=== PATIENT | female | born 1975 ===

== ENCOUNTER 2017-04-01 17:01 | Emergency (ER) | payer MEDICAID, OTHER ==
[2017-04-01 17:45] VITALS: BMI 34.0
[2017-04-01 17:49] VITALS: PULSE 73; O2SAT 100
[2017-04-01] MEDS ORDERED: Albuterol-Ipratrop 3 mg / 0.5 (3 ml) UD INH STA (18:19)
--- NOTE | 2017-04-01 18:24 | C.PDOC ---
History Of Present Illness 42 year old female with Hx of asthma presents to the ED c/o non productive cough , chest discomfort for 1-2 weeks. Patient states she lives in [place] and does not have access to medicine. Patient denies fever, chills, vomit, nausea, abdominal pain, diarrhea, numbness or weakness. Chief Complaint (Nursing): Shortness Of Breath History Per: Patient History/Exam Limitations: no limitations Onset/Duration Of Symptoms: Days Current Symptoms Are (Timing): Still Present Quality: Tightness Exacerbating Factor(s): Coughing Current Respiratory Medications: None Severity: None Associated Symptoms: Chest Pain (With cough). denies: Fever, Dizziness, Tingling In Hands Or Face Recent travel outside of the [place]: No Additional History Per: Patient Past Medical History Reviewed: Historical Data, Nursing Documentation, Vital Signs Vital Signs: Last Vital Signs Temp 97.8 F 04/01/17 17:45 Pulse 73 04/01/17 17:45 Resp 19 04/01/17 17:50 BP 132/84 04/01/17 17:45 Pulse Ox 100 04/01/17 17:45 - Medical History PMH: Asthma Surgical History: No Surg Hx Family History: States: Unknown Family Hx - Social History Hx Alcohol Use: No Hx Substance Use: No - Immunization History Hx Tetanus Toxoid Vaccination: Yes Hx Influenza Vaccination: No Hx Pneumococcal Vaccination: No Review Of Systems Constitutional: Negative for: Fever, Chills Cardiovascular: Positive for: Chest Pain (with cough). Negative for: Palpitations Respiratory: Positive for: Cough (non productive ). Negative for: Sputum Gastrointestinal: Negative for: Nausea, Vomiting, Abdominal Pain Musculoskeletal: Negative for: Back Pain Skin: Negative for: Rash Neurological: Negative for: Weakness, Numbness Physical Exam - Physical Exam Appears: Non-toxic, No Acute Distress Skin: Normal Color, Warm, Dry Head: Atraumatic, Normacephalic Eye(s): bilateral: Normal Inspection Ear(s): Bilateral: Normal Nose: No Discharge, No Deformity Oral Mucosa: Moist, No Drooling Neck: Normal ROM, Supple Chest: Symmetrical Cardiovascular: Rhythm Regular, No Murmur Respiratory: Normal Breath Sounds, No Rales, No Rhonchi, No Wheezing Gastrointestinal/Abdominal: Soft, No Tenderness, No Guarding, No Rebound Extremity: Normal ROM, No Pedal Edema, No Calf Tenderness, No Swelling Neurological/Psych: Oriented x3, Normal Speech, Normal Cognition ED Course And Treatment O2 Sat by Pulse Oximetry: 100 (On RA) Pulse Ox Interpretation: Normal Progress Note: Plan: -Albuterol 3 ml INH given. -Prednisone 20 mg PO given Disposition - Disposition - Scribe Statement The provider has reviewed the documentation as recorded by the Scribe Nicholas Hooker All medical record entries made by the Scribe were at my direction and personally dictated by me. I have reviewed the chart and agree that the record accurately reflects my personal performance of the history, physical exam, medical decision making, and the department course for this patient. I have also personally directed, reviewed, and agree with the discharge instructions and disposition.
--- NOTE | 2017-04-01 18:30 | C.PDOC ---
Chief Complaint (Nursing): Shortness Of Breath Past Medical History Vital Signs: Last Vital Signs Temp 97.8 F 04/01/17 17:45 Pulse 73 04/01/17 17:45 Resp 19 04/01/17 17:50 BP 132/84 04/01/17 17:45 Pulse Ox 100 04/01/17 17:45 - Medical History PMH: Asthma - Social History Hx Alcohol Use: No Hx Substance Use: No - Immunization History Hx Tetanus Toxoid Vaccination: Yes Hx Influenza Vaccination: No Hx Pneumococcal Vaccination: No ED Course And Treatment O2 Sat by Pulse Oximetry: 100 Disposition - Disposition Disposition: HOME/ ROUTINE Disposition Time: 18:45 Condition: STABLE - Clinical Impression Clinical Impression: Bronchitis, Asthma
[2017-04-01] MEDS ORDERED: Albuterol-Ipratrop 3 mg / 0.5 (3 ml) UD ONE (18:41)
[2017-04-01 19:11] VITALS: BP 151/79; RESP 18; TEMP 98
--- NOTE | 2017-04-03 23:23 | CARD ---
APPROVED REPORT EKG Measurement Heart [id number] IL [id number] <Conclusion> Normal sinus rhythm Nonspecific T wave abnormality Abnormal ECG
== END 2017-04-01 19:12 | disposition home or self-care (01) ==
LOC: C.ER 17:01
DX: J45.909 Unspecified asthma, uncomplicated (principal)

== ENCOUNTER 2017-04-07 15:16 | Emergency (ER) | payer MEDICAID ==
[2017-04-07 15:16] VITALS: BMI 34.0
--- NOTE | 2017-04-07 15:50 | C.PDOC ---
History Of Present Illness CO PERSIST ASTHMA SX X 2 WEEKS. SEEN 04/01 FOR SAME, ON PREDNISONE 20 MG DAILY X 7 DAYS, LAST DOSE THIS MORNING. PS NO IMPROVEMENT. PERSIST COUGH, +PLEURITIC PAIN. NO FEVER. RAN OUT OF PUMP EXAM NARD LUNGS CTA B/L NO W/R/R NO RETRACTION REMAINDER NEG MDM PT CO CURRENT ASTHMA SX. PREDNISONE, NEB, TORADOL REEVAL Time Seen by Provider: 04/07/17 15:36 Chief Complaint (Nursing): Shortness Of Breath History Per: Patient History/Exam Limitations: no limitations Onset/Duration Of Symptoms: Days (2 weeks) Past Medical History Reviewed: Historical Data, Nursing Documentation, Vital Signs Vital Signs: Last Vital Signs Temp 97.9 F 04/07/17 15:22 Pulse 70 04/07/17 15:22 Resp 18 04/07/17 15:22 BP 122/80 04/07/17 15:22 Pulse Ox 98 04/07/17 16:26 - Medical History PMH: Asthma Family History: States: No Known Family Hx, Unknown Family Hx - Social History Hx Alcohol Use: No Hx Substance Use: No - Immunization History Hx Tetanus Toxoid Vaccination: Yes Hx Influenza Vaccination: No Hx Pneumococcal Vaccination: No Review Of Systems Except As Marked, All Systems Reviewed And Found Negative. Constitutional: Negative for: Fever Cardiovascular: Negative for: Chest Pain Respiratory: Positive for: Other (Persistent asthma) Gastrointestinal: Negative for: Nausea, Vomiting Physical Exam - Physical Exam Appears: Non-toxic, No Acute Distress Skin: Warm, Dry, No Rash Head: Atraumatic, Normacephalic Oral Mucosa: Moist Cardiovascular: Rhythm Regular, No Murmur Respiratory: Normal Breath Sounds, No Rales, No Rhonchi, No Stridor, No Wheezing , Other (No retractions) ED Course And Treatment O2 Sat by Pulse Oximetry: 98 (RA) Pulse Ox Interpretation: Normal - Radiology CXR: Viewed By Me, Read By Radiologist CXR Interpretation: Yes: Other (IMPRESSION: No focal consolidation, significant pleural effusion, or definite pneumothorax identified.) Progress - Data Reviewed Data Reviewed: Old records Medical Decision Making Medical Decision Making: PLAN: * CXR * Albuterol IH * Tessalon Perles PO * Prednisone PO NOTE: PT CO CURRENT ASTHMA SX. PREDNISONE, NEB, TORADOL REEVAL Disposition Counseled Patient/Family Regarding: Studies Performed, Diagnosis, Need For Followup, Rx Given - Disposition Referrals: [facility] [Outside] [facility] [Outside] Disposition: HOME/ ROUTINE Disposition Time: 17:13 Condition: IMPROVED Prescriptions: Albuterol HFA [Ventolin HFA 90 mcg/actuation (8 g)] 1 puff IH Q4 #1 inhaler Benzonatate [Tessalon Perles] 200 mg PO TID PRN #15 sgl PRN Reason: Cough Methylprednisolone [Medrol] 4 mg PO DAILY #1 packet predniSONE [Prednisone] 60 mg PO DAILY #9 tab Instructions: Asthma (ED) Forms: Check (Mauritanian) - Clinical Impression Clinical Impression: Asthma - Scribe Statement The provider has reviewed the documentation as recorded by the Dru Owen Provider Attestation: All medical record entries made by the Suzeibsp were at my direction and personally dictated by me. I have reviewed the chart and agree that the record accurately reflects my personal performance of the history, physical exam, medical decision making, and the department course for this patient. I have also personally directed, reviewed, and agree with the discharge instructions and disposition.
[2017-04-07] MEDS ORDERED: Albuterol-Ipratrop 3 mg / 0.5 (3 ml) UD IH STA (15:51)
[2017-04-07] MEDS ORDERED: Albuterol-Ipratrop 3 mg / 0.5 (3 ml) UD ONE (16:00)
--- NOTE | 2017-04-07 16:23 | RAD ---
HISTORY: COUGH COMPARISON: None available. TECHNIQUE: Chest PA and lateral FINDINGS: LUNGS: No focal consolidation. Please note that chest x-ray has limited sensitivity for the detection of pulmonary masses. PLEURA: No significant pleural effusion identified. No definite pneumothorax . CARDIOVASCULAR: The cardiomediastinal silhouette appears within normal limits of size. OSSEOUS STRUCTURES: No acute osseous abnormality identified. VISUALIZED UPPER ABDOMEN: Unremarkable. OTHER FINDINGS: None. IMPRESSION: No focal consolidation, significant pleural effusion, or definite pneumothorax identified.
[2017-04-07 17:27] VITALS: BP 124/72; PULSE 77; RESP 19; TEMP 98; O2SAT 99
== END 2017-04-07 17:26 | disposition home or self-care (01) ==
LOC: C.ER 15:16
DX: J45.909 Unspecified asthma, uncomplicated (principal)
CPT/HCPCS: 71020; 94150; 94640; 96372; 99283; J1885

== ENCOUNTER 2017-12-13 16:04 | Emergency (ER) | payer SELFPAY ==
[2017-12-13 16:04] VITALS: BMI 34.0
[2017-12-13 16:11] VITALS: BP 135/74; PULSE 91; RESP 18; TEMP 98.6; O2SAT 96
--- NOTE | 2017-12-13 16:46 | C.PDOC ---
History Of Present Illness <Evelio Campos - Last Filed: 12/13/17 16:51> <Jose E Devine DO - Last Filed: 12/13/17 18:33> CC: Foot Blisters Patient is a 42 year old female with no past medical history who presents to the ED with complaint of foot blisters that started yesterday after spending a day at the pool. Patient denies walking barefoot or unsupported footware. Patient denies any recent trauma or hot water injury. Patient denies fever, chills, or difficulty walking. (Evelio Campos) History Per: Patient History/Exam Limitations: no limitations Onset/Duration Of Symptoms: Hrs Current Symptoms Are (Timing): Still Present Severity: Moderate Pain Scale Rating Of: 6 Location: Bilateral big toes and fifth digits blisters Quality: Burning <Evelio Campos - Last Filed: 12/13/17 16:51> <Jose E Devine DO - Last Filed: 12/13/17 18:33> Time Seen by Provider: 12/13/17 16:11 Chief Complaint (Nursing): Abnormal Skin Integrity Past Medical History - Medical History PMH: No Chronic Diseases, Asthma Family History: States: Unknown Family Hx - Social History Hx Alcohol Use: No Hx Substance Use: No - Immunization History Hx Tetanus Toxoid Vaccination: Yes Hx Influenza Vaccination: No Hx Pneumococcal Vaccination: No <Evelio Campos - Last Filed: 12/13/17 16:51> Vital Signs: Last Vital Signs Temp 98.6 F 12/13/17 16:08 Pulse 91 H 12/13/17 16:08 Resp 18 12/13/17 16:08 BP 135/74 12/13/17 16:08 Pulse Ox 96 12/13/17 16:58 Review Of Systems Constitutional: Negative for: Fever, Chills, Weakness, Malaise Cardiovascular: Negative for: Chest Pain, Palpitations Respiratory: Negative for: Shortness of Breath Gastrointestinal: Negative for: Nausea, Vomiting Musculoskeletal: Positive for: Foot Pain Neurological: Negative for: Weakness <Evelio Campos - Last Filed: 12/13/17 16:51> Physical Exam - Physical Exam Appears: Well Skin: Normal Color Head: Atraumatic, Normacephalic Eye(s): bilateral: EOMI Extremity: Normal ROM, Tenderness, Other (Bilateral foot tenderness due to blisters ) Neurological/Psych: Oriented x3, Normal Speech <Evelio Campos - Last Filed: 12/13/17 16:51> ED Course And Treatment O2 Sat by Pulse Oximetry: 96 <Evelio Campos - Last Filed: 12/13/17 16:51> Medical Decision Making <Evelio Campos - Last Filed: 12/13/17 16:51> <Jose E Devine DO - Last Filed: 12/13/17 18:33> Medical Decision Making: Blisters drainage X4 (Evelio Campos) Disposition Discussed With : Jose E Devine DO - Disposition Disposition Time: 16:48 <Evelio Campos - Last Filed: 12/13/17 16:51> <Jose E Devine DO - Last Filed: 12/13/17 18:33> - Disposition Referrals: [facility] [Outside] [facility] [Outside] Disposition: HOME/ ROUTINE Condition: GOOD Additional Instructions: Please discharge patient home Please use anti-fungal topical cream twice daily Please keep warm compresses on blister every 4 hours. Please wash feet with antiseptic soap and warm water Please avoid walking barefoot Please wear shoes with good support Pleas avoid slippers (plastic or glass) for now Please always keep feet dry Please follow up with the [facility], Prescriptions: Miconazole Nitrate [Anti-Fungal Cream] 113 gm TP BID #1 cream..g. Forms: [facility] (Danish), General Discharge Instructions - Clinical Impression Clinical Impression: Blister of foot without infection - PA / HVAC/R SERVICE TECHNICIAN / Resident Statement / has reviewed & agrees with the documentation as recorded. / has examined the patient and agrees with the treatment plan. <Jose E Devine DO - Last Filed: 12/13/17 18:33>
== END 2017-12-13 16:52 | disposition home or self-care (01) ==
LOC: C.ER 16:04
DX: S90.822A Blister (nonthermal), left foot, initial encounter (principal); S90.821A Blister (nonthermal), right foot, initial encounter; X58.XXXA Exposure to other specified factors, initial encounter; Y92.34 Swimming pool (public) as the place of occurrence of the external cause

== ENCOUNTER 2018-03-03 13:17 | Emergency (ER) | payer MEDICAID, OTHER ==
[2018-03-03 13:17] VITALS: BMI 34.0
[2018-03-03 13:29] VITALS: BP 134/98; PULSE 73; RESP 22; TEMP 98; O2SAT 98
[2018-03-03] MEDS ORDERED: Naproxen 550 mg Tab PO STA (13:52)
[2018-03-03] MEDS ORDERED: Amoxicillin-Clav 875-125 mg Tab PO STA (13:53)
[2018-03-03] MEDS ORDERED: Amoxicillin-Clav 875-125 mg Tab PO ONE (14:01)
[2018-03-03] MEDS ORDERED: Naproxen 550 mg Tab PO ONE (14:02)
--- NOTE | 2018-03-03 14:29 | C.PDOC ---
History Of Present Illness 43 y/o female pt with hx of trigeminal neuralgia presents to the ER for ear pain. Pt was seen in [facility] on 02/28 where they gave her tramadol and ear drops which provide no relief. Pt uses lidocaine patches on her face and neck due to her trigeminal neuralgia. Pt denies fever, chills, nausea, vomiting, headache and dizziness. Time Seen by Provider: 03/03/18 13:32 Chief Complaint (Nursing): ENT Problem History Per: Patient History/Exam Limitations: None Onset/Duration Of Symptoms: Days Current Symptoms Are (Timing): Still Present Severity: Mild Past Medical History Reviewed: Historical Data, Nursing Documentation, Vital Signs Vital Signs: Last Vital Signs Temp 98.0 F 03/03/18 13:25 Pulse 73 03/03/18 13:25 Resp 22 03/03/18 13:25 BP 134/98 H 03/03/18 13:25 Pulse Ox 98 03/03/18 13:25 - Medical History PMH: Asthma Other PMH: neuralgia - [facility] (02/07/18) INTRODUCTION OF SERUM/TOX/VACCINE INTO MUSCLE, PERC APPROACH (02/07/18) Family History: States: Unknown Family Hx - Social History Hx Alcohol Use: No Hx Substance Use: No - Immunization History Hx Tetanus Toxoid Vaccination: Yes Hx Influenza Vaccination: No Hx Pneumococcal Vaccination: No Review Of Systems Except As Marked, All Systems Reviewed And Found Negative. Constitutional: Negative for: Fever, Chills ENT: Positive for: Ear Pain Gastrointestinal: Negative for: Nausea, Vomiting Neurological: Negative for: Headache Physical Exam - Physical Exam Appears: Non-toxic, No Acute Distress Skin: Warm, Dry Head: Atraumatic, Normacephalic Eye(s): bilateral: Normal Inspection, PERRL, EOMI Ear(s): Left: TM Dull, Other ( TM; (-) erythemia, Eea canal no swelling ) Nose: Normal Oral Mucosa: Moist Throat: Normal Neck: Normal ROM, Supple Chest: Symmetrical Cardiovascular: Rhythm Regular Respiratory: Normal Breath Sounds Neurological/Psych: Oriented x3, Normal Speech Gait: Steady ED Course And Treatment O2 Sat by Pulse Oximetry: 98 (RA) Pulse Ox Interpretation: Normal Progress Note: Augmentin and naproxen ordered but patient refused. Patient requesting stronger pain medication. Requesting morphine. Patient upset and yelling because she wants strong pain medication Reassessment Condition: Unchanged Medical Decision Making Medical Decision Making: Impression: ear pain Plans: -- naproxen -- amoxicillin Reassess: Patient is instructed to f/u with ENT for further evaluation. Patient cursing and yelling in ED because she was not given strong pain medication Disposition Counseled Patient/Family Regarding: Need For Followup, Rx Given - Disposition Referrals: Horace Olivo MD [Staff Provider] - Disposition: HOME/ ROUTINE Disposition Time: 16:00 Condition: STABLE Additional Instructions: Follow up with Ear doctor for further evaluation Prescriptions: Amoxicillin/Clavulanate [Augmentin 875 MG-125 MG] 1 tab PO BID #14 tab Naproxen [Naprosyn] 1 tab PO BID PRN #25 tab PRN Reason: Pain Instructions: Ear Infections (Otitis Media) Forms: [facility] ([place]) - POA Present On Arrival: None - Clinical Impression Clinical Impression: Trigeminal neuralgia of left side of face, Otitis - PA / CONTINUING EDUCATION DEAN / Resident Statement MD/DO has reviewed & agrees with the documentation as recorded. - Scribe Statement The provider has reviewed the documentation as recorded by the Dru Smallwood Do All medical record entries made by the Dru were at my direction and personally dictated by me. I have reviewed the chart and agree that the record accurately reflects my personal performance of the history, physical exam, medical decision making, and the department course for this patient. I have also personally directed, reviewed, and agree with the discharge instructions and disposition.
== END 2018-03-03 14:25 | disposition home or self-care (01) ==
LOC: C.ER 13:17
DX: G50.0 Trigeminal neuralgia (principal); H66.92 Otitis media, unspecified, left ear